=== PATIENT | male | born 1965 | race Caucasian/White ===

== ENCOUNTER 2017-09-26 18:06 | Inpatient (IN) | payer OTHER ==
[~2017-09-26] VITALS: Ht 172.7 cm; Wt 100.4 kg
[~2017-09-26 18:06] MED LIST: CORDROL20 MG PO; MEDROL DOSEPAK4 MG PO; NKHM; PEPCID20 MG PO; PREDNICOT20 MG PO; TRAMADOL HCL50 MG PO
[2017-09-26 18:09] VITALS: BP 186/101
[2017-09-26 18:47] LABS: BASO # 0.1 10*3/uL (0.0-0.1); BASO % 0.4 % (0.0-1.0); EOS # 0.1 10*3/uL (0.0-0.4); EOS % 1.2 % (1.0-4.0); HEMATOCRIT 44.9 % (42.0-52.0); LYMPH # 2.3 10*3/uL (1.3-4.4); LYMPH % 20.1 % (27.0-41.0); MEAN CELL VOLUME 90.3 fl (80.0-94.0); MEAN CORPUSCULAR HGB 30.2 pg (27.0-31.0); MEAN CORPUSCULAR HGB CONC 33.4 g/dl (33.0-37.0); MONO % 8.6 % (3.0-9.0); NEUT # 7.9 10*3/uL (2.3-7.9); NEUT % 69.4 % (47.0-73.0); PLATELET COUNT AUTOMATED 291 10*3/uL (130-400); RED BLOOD COUNT 4.97 10*6/uL (4.50-5.90); RED CELL DISTRI WIDTH 14.1 % (0-14.5); WHITE BLOOD COUNT 11.4 10*3/uL (4.8-10.8)
[2017-09-26 18:50] VITALS: BP 166/88
[2017-09-26 19:16] VITALS: BP 173/102
[2017-09-26 19:20] LABS: ALBUMIN 3.4 gm/dl (3.1-4.5); ALKALINE PHOSPHATASE 83 U/L (45-117); BUN 27 mg/dl (7-24); CHLORIDE 112 mmol/L (98-107); CREATININE 0.82 mg/dL (0.70-1.30); POTASSIUM 3.7 mmol/L (3.5-5.1); SGOT/AST 23 IU/L (3-35); SGPT/ALT 41 U/L (12-78); SODIUM 144 mmol/L (136-145); TOTAL PROTEIN 6.7 gm/dL (6.4-8.2)
[2017-09-26 20:08] VITALS: BP 164/84
[2017-09-26 20:50] VITALS: BP 160/94
[2017-09-27] VITALS: BP 158/80
[2017-09-27 04:00] VITALS: BP 174/75
[2017-09-27 05:30] LABS: HEMATOCRIT 45.1 % (42.0-52.0); HEMOGLOBIN 14.9 g/dl (14.0-18.0); MEAN CELL VOLUME 90.7 fl (80.0-94.0); MEAN PLATELET VOLUME 10.3 fl (9.6-12.3); PLATELET COUNT AUTOMATED 225 10*3/uL (130-400); RED BLOOD COUNT 4.97 10*6/uL (4.50-5.90); RED CELL DISTRI WIDTH 13.7 % (0-14.5); WHITE BLOOD COUNT 10.2 10*3/uL (4.8-10.8)
[2017-09-27 05:41] LABS: BUN 19 mg/dl (7-24); CHLORIDE 112 mmol/L (98-107); CREATININE 0.74 mg/dL (0.70-1.30); POTASSIUM 4.2 mmol/L (3.5-5.1); SODIUM 141 mmol/L (136-145)
[2017-09-27 05:44] LABS: CHOLESTEROL 155 mg/dL (<200); HDL CHOLESTEROL 67 mg/dl (40-60); LDL CHOLESTEROL 80 mg/dL (9-159); PHOSPHOROUS 2.1 mg/dL (2.5-4.9); TRIGLYCERIDES 39 mg/dl (<150); VLDL CHOLESTEROL 8 mg/dL (6-40)
[2017-09-27 05:52] LABS: THYROID STIM HORMONE (HS) 0.775 uIU/ml (0.358-4.75)
[2017-09-27 06:42] LABS: PLATELET SUFFICIENCY NORMAL (NORMAL); TOTAL CELLS COUNTED 100 #CELLS
[2017-09-27 07:23] LABS: VITAMIN D, 25-HYDROXY 23.1 ng/mL (30-100)
[2017-09-27 08:00] VITALS: BP 152/100
[2017-09-27 12:00] VITALS: BP 160/84
[2017-09-27] MEDS ORDERED: PREDNISONE10 MG PO (13:20)
[2017-09-27] MEDS ORDERED: AMLODIPINE BESYL5 MG PO (13:20)
== END 2017-09-27 14:07 | disposition home or self-care (01) | DRG 916 ==
LOC: ED 18:06 → EDHOLD 20:11 → ICCU 20:26
PROVIDERS: Physician Assistant; Student in an Organized Health Care Education/Training Program
DX: T78.3XXA Angioneurotic edema, initial encounter (principal); E87.8 Other disorders of electrolyte and fluid balance, not elsewhere classified; R03.0 Elevated blood-pressure reading, without diagnosis of hypertension; I16.0 Hypertensive urgency; I49.9 Cardiac arrhythmia, unspecified; G47.33 Obstructive sleep apnea (adult) (pediatric); Z88.0 Allergy status to penicillin; Z91.010 Allergy to peanuts; Z72.0 Tobacco use; Z71.6 Tobacco abuse counseling

== ENCOUNTER 2017-10-05 03:55 | Inpatient (IN) | payer OTHER ==
[~2017-10-05] VITALS: Ht 172.7 cm; Wt 102.1 kg
[~2017-10-05 03:55] MED LIST changes: +AMLODIPINE BESYL5 MG PO; +PREDNISONE10 MG PO
[2017-10-05 03:57] VITALS: BP 175/99
[2017-10-05 04:23] VITALS: BP 146/83
[2017-10-05] MEDS ORDERED: EPIPEN 2-P0.3 MG/0.3 IJ (04:33)
[2017-10-05 04:35] LABS: HEMATOCRIT 44.8 % (42.0-52.0); HEMOGLOBIN 14.1 g/dl (14.0-18.0); MEAN CELL VOLUME 93.1 fl (80.0-94.0); MEAN CORPUSCULAR HGB 29.3 pg (27.0-31.0); MEAN CORPUSCULAR HGB CONC 31.5 g/dl (33.0-37.0); MEAN PLATELET VOLUME 9.9 fl (9.6-12.3); PLATELET COUNT AUTOMATED 238 10*3/uL (130-400); RED BLOOD COUNT 4.81 10*6/uL (4.50-5.90); RED CELL DISTRI WIDTH 14.3 % (0-14.5); WHITE BLOOD COUNT 16.2 10*3/uL (4.8-10.8)
[2017-10-05 04:46] LABS: ACT PARTIAL THROMBO TIME 24.3 SECONDS (20.8-31.5); INTERNATIONAL NORM RATIO 0.9 (2.0-3.5)
[2017-10-05 04:52] LABS: BASOPHILS 1 % (0-1); TOTAL CELLS COUNTED 100 #CELLS
[2017-10-05 04:53] LABS: PLATELET SUFFICIENCY NORMAL (NORMAL)
[2017-10-05 04:54] LABS: ALBUMIN 3.4 gm/dl (3.1-4.5); ALKALINE PHOSPHATASE 71 U/L (45-117); BUN 26 mg/dl (7-24); CHLORIDE 109 mmol/L (98-107); CREATININE 1.35 mg/dL (0.70-1.30); POTASSIUM 4.3 mmol/L (3.5-5.1); SGOT/AST 16 IU/L (3-35); SGPT/ALT 39 U/L (12-78); SODIUM 145 mmol/L (136-145); TOTAL PROTEIN 6.6 gm/dL (6.4-8.2)
[2017-10-05 04:57] LABS: TROPONIN I < 0.015 ng/ml (<0.045)
[2017-10-05 06:56] VITALS: BP 154/64
[2017-10-05 08:00] VITALS: BP 154/95
[2017-10-05 09:39] LABS: HEMATOCRIT 46.9 % (42.0-52.0); HEMOGLOBIN 15.1 g/dl (14.0-18.0); MEAN CORPUSCULAR HGB 29.6 pg (27.0-31.0); MEAN CORPUSCULAR HGB CONC 32.2 g/dl (33.0-37.0); PLATELET COUNT AUTOMATED 205 10*3/uL (130-400); RED CELL DISTRI WIDTH 14.1 % (0-14.5); WHITE BLOOD COUNT 12.2 10*3/uL (4.8-10.8)
[2017-10-05 10:02] LABS: BUN 20 mg/dl (7-24); CHLORIDE 111 mmol/L (98-107); CREATININE 0.97 mg/dL (0.70-1.30); PHOSPHOROUS 2.1 mg/dL (2.5-4.9); POTASSIUM 4.4 mmol/L (3.5-5.1); SODIUM 144 mmol/L (136-145)
[2017-10-05 10:03] LABS: PLATELET SUFFICIENCY NORMAL (NORMAL); TOTAL CELLS COUNTED 100 #CELLS
[2017-10-05 12:00] VITALS: BP 156/91
[2017-10-05 16:00] VITALS: BP 159/87
[2017-10-05] MEDS ORDERED: NORVASC5 MG PO (16:24)
[2017-10-05] MEDS ORDERED: PREDNISONE10 MG PO (16:24)
== END 2017-10-05 16:50 | disposition home or self-care (01) | DRG 915 ==
LOC: ED 03:55 → ICCU 05:01 → EDHOLD 05:01 → ICCU 06:43
PROVIDERS: Internal Medicine; Student in an Organized Health Care Education/Training Program
DX: T78.2XXA Anaphylactic shock, unspecified, initial encounter (principal); N17.0 Acute kidney failure with tubular necrosis; E44.1 Mild protein-calorie malnutrition; E87.8 Other disorders of electrolyte and fluid balance, not elsewhere classified; E83.41 Hypermagnesemia; E83.39 Other disorders of phosphorus metabolism; R06.82 Tachypnea, not elsewhere classified; R00.0 Tachycardia, unspecified; R03.0 Elevated blood-pressure reading, without diagnosis of hypertension; Z71.6 Tobacco abuse counseling; Z72.0 Tobacco use; Z88.0 Allergy status to penicillin; Z91.010 Allergy to peanuts; Z79.899 Other long term (current) drug therapy; Z82.3 Family history of stroke; Z80.6 Family history of leukemia; Z68.28 Body mass index [BMI] 28.0-28.9, adult

== ENCOUNTER → 2017-10-13 | Outpatient (CLI) | payer OTHER ==
[~2017-10-13] MED LIST changes: +EPIPEN 2-P0.3 MG/0.3 IJ; +NORVASC5 MG PO
== END | disposition home or self-care (01) ==
LOC: RESCLI 03:52
DX: I10 Essential (primary) hypertension (principal); F10.10 Alcohol abuse, uncomplicated; K42.9 Umbilical hernia without obstruction or gangrene; Z71.41 Alcohol abuse counseling and surveillance of alcoholic; Z71.6 Tobacco abuse counseling; Z72.0 Tobacco use; Z91.010 Allergy to peanuts

== ENCOUNTER 2017-11-03 07:53 | Inpatient (IN) | payer OTHER ==
[2017-11-03] VITALS (7 sets, daily range): BP systolic 146–158; BP diastolic 64–97
[~2017-11-03] VITALS: Ht 175.3 cm; Wt 101.8 kg
--- NOTE | ~2017-11-03 | EKG ---
[place], [place] ELECTROCARDIOGRAM REPORT NAME: ROSARIO OBRIEN UNIT #: [id number] ROOM: [facility] DOCTOR: DAVID DRAFT REPORT BIRTHDATE: [birth year] [facility] Test Date: 2017-11-03 Test Time: 08:30:44 Pat Name: ROSARIO OBRIEN Department: Room: [facility] Gender: M Pbx Manager: : 1965 Requested By: MARY BUTTERFIELD Order Number: [id number] Reading MD: Maykel Lara MD Measurements Intervals [place] Rate: 82 P: 83 WI: 178 QRS: 62 QRSD: 82 T: 86 QT: 390 QTc: 456 Interpretive Statements Sinus rhythm Electronically Signed On 11-04-2017 15:36:32 PDT by Maykel Lara MD CM:EKGRPT:ELECTROCARDIOGRAM REPORT 0830 1536 MARY HERNANDEZ DRAFT REPORT MARY BUTTERFIELD M.D.
[2017-11-03 08:31] LABS: BASO % 0.5 % (0.0-1.0); EOS # 0.1 10*3/uL (0.0-0.4); EOS % 1.6 % (1.0-4.0); HEMATOCRIT 43.4 % (42.0-52.0); HEMOGLOBIN 14.2 g/dl (14.0-18.0); LYMPH # 3.1 10*3/uL (1.3-4.4); LYMPH % 48.9 % (27.0-41.0); MEAN CELL VOLUME 92.7 fl (80.0-94.0); MEAN CORPUSCULAR HGB 30.3 pg (27.0-31.0); MEAN CORPUSCULAR HGB CONC 32.7 g/dl (33.0-37.0); MEAN PLATELET VOLUME 9.8 fl (9.6-12.3); MONO # 0.7 10*3/uL (0.1-1.0); MONO % 10.3 % (3.0-9.0); NEUT # 2.4 10*3/uL (2.3-7.9); NEUT % 38.4 % (47.0-73.0); PLATELET COUNT AUTOMATED 206 10*3/uL (130-400); RED BLOOD COUNT 4.68 10*6/uL (4.50-5.90); RED CELL DISTRI WIDTH 13.7 % (0-14.5); WHITE BLOOD COUNT 6.3 10*3/uL (4.8-10.8)
[2017-11-03 08:51] LABS: ALBUMIN 3.7 gm/dl (3.1-4.5); ALKALINE PHOSPHATASE 73 U/L (45-117); BUN 19 mg/dl (7-24); CHLORIDE 111 mmol/L (98-107); CREATININE 0.86 mg/dL (0.70-1.30); POTASSIUM 3.7 mmol/L (3.5-5.1); SGOT/AST 33 IU/L (3-35); SGPT/ALT 51 U/L (12-78); SODIUM 144 mmol/L (136-145); TOTAL PROTEIN 7.1 gm/dL (6.4-8.2)
[2017-11-03 08:54] LABS: TROPONIN I < 0.015 ng/ml (<0.045)
[2017-11-04] VITALS: BP 163/95
[2017-11-04 04:00] VITALS: BP 150/89
[2017-11-04 04:25] LABS: BASO % 0.2 % (0.0-1.0); HEMATOCRIT 45.7 % (42.0-52.0); LYMPH # 1.2 10*3/uL (1.3-4.4); LYMPH % 10.3 % (27.0-41.0); MEAN CELL VOLUME 91.2 fl (80.0-94.0); MEAN CORPUSCULAR HGB 29.9 pg (27.0-31.0); MEAN CORPUSCULAR HGB CONC 32.8 g/dl (33.0-37.0); MEAN PLATELET VOLUME 10.3 fl (9.6-12.3); MONO # 0.1 10*3/uL (0.1-1.0); MONO % 1.1 % (3.0-9.0); NEUT % 87.5 % (47.0-73.0); PLATELET COUNT AUTOMATED 217 10*3/uL (130-400); RED BLOOD COUNT 5.01 10*6/uL (4.50-5.90); RED CELL DISTRI WIDTH 13.4 % (0-14.5); WHITE BLOOD COUNT 11.4 10*3/uL (4.8-10.8)
[2017-11-04 04:41] LABS: ALBUMIN 3.6 gm/dl (3.1-4.5); BUN 19 mg/dl (7-24); CHLORIDE 108 mmol/L (98-107); CREATININE 0.77 mg/dL (0.70-1.30); PHOSPHOROUS 2.6 mg/dL (2.5-4.9); POTASSIUM 3.9 mmol/L (3.5-5.1); SGOT/AST 21 IU/L (3-35); SGPT/ALT 48 U/L (12-78); SODIUM 140 mmol/L (136-145)
[2017-11-04 04:42] LABS: ALKALINE PHOSPHATASE 74 U/L (45-117); TOTAL PROTEIN 7.2 gm/dL (6.4-8.2)
[2017-11-04 06:23] LABS: ACT PARTIAL THROMBO TIME 23.2 SECONDS (20.8-31.5)
[2017-11-04 06:40] LABS: VITAMIN D, 25-HYDROXY 19.5 ng/mL (30-100)
[2017-11-04 08:00] VITALS: BP 166/90
[2017-11-04] MEDS ORDERED: PREDNISONE10 MG PO (09:44)
[2017-11-04] MEDS ORDERED: EPIPEN 2-P0.3 MG/0.3 IJ (09:44)
[2017-11-04] MEDS ORDERED: NORVASC5 MG PO (10:17)
== END 2017-11-04 11:02 | disposition home or self-care (01) | DRG 916 ==
LOC: ED 07:53 → EDHOLD 09:40 → ICCU 09:40
PROVIDERS: Emergency Medicine; Internal Medicine
DX: T78.2XXA Anaphylactic shock, unspecified, initial encounter (principal); E83.51 Hypocalcemia; E87.8 Other disorders of electrolyte and fluid balance, not elsewhere classified; I10 Essential (primary) hypertension; E66.9 Obesity, unspecified; T78.3XXS Angioneurotic edema, sequela; Z91.010 Allergy to peanuts; Z72.0 Tobacco use; Z78.9 Other specified health status; Z91.19 Patient's noncompliance with other medical treatment and regimen; Q38.2 Macroglossia; Z88.0 Allergy status to penicillin; Z79.899 Other long term (current) drug therapy; Z82.3 Family history of stroke; Z80.6 Family history of leukemia; Z68.33 Body mass index [BMI] 33.0-33.9, adult

== ENCOUNTER 2018-01-01 06:46 | Inpatient (IN) | payer OTHER ==
[~2018-01-01] VITALS: Ht 175.3 cm; Wt 105.9 kg
[2018-01-01 06:52] VITALS: BP 158/100
[2018-01-01 07:43] LABS: BASO # 0.1 10*3/uL (0.0-0.1); BASO % 0.7 % (0.0-1.0); EOS # 0.3 10*3/uL (0.0-0.4); EOS % 2.3 % (1.0-4.0); HEMATOCRIT 47.4 % (42.0-52.0); HEMOGLOBIN 15.7 g/dl (14.0-18.0); LYMPH % 45.1 % (27.0-41.0); MEAN CELL VOLUME 92.4 fl (80.0-94.0); MEAN CORPUSCULAR HGB 30.6 pg (27.0-31.0); MEAN CORPUSCULAR HGB CONC 33.1 g/dl (33.0-37.0); MEAN PLATELET VOLUME 10.2 fl (9.6-12.3); MONO # 1.1 10*3/uL (0.1-1.0); NEUT # 4.6 10*3/uL (2.3-7.9); NEUT % 41.6 % (47.0-73.0); PLATELET COUNT AUTOMATED 247 10*3/uL (130-400); RED BLOOD COUNT 5.13 10*6/uL (4.50-5.90); WHITE BLOOD COUNT 11.1 10*3/uL (4.8-10.8)
[2018-01-01 07:47] VITALS: BP 168/92
[2018-01-01 07:52] LABS: ACT PARTIAL THROMBO TIME 23.9 SECONDS (20.8-31.5)
[2018-01-01 08:00] VITALS: BP 154/67; BP 158/67
[2018-01-01 08:06] LABS: ALBUMIN 3.8 gm/dl (3.1-4.5); ALKALINE PHOSPHATASE 77 U/L (45-117); BUN 18 mg/dl (7-24); CHLORIDE 108 mmol/L (98-107); CREATININE 1.15 mg/dL (0.70-1.30); POTASSIUM 4.2 mmol/L (3.5-5.1); SGOT/AST 33 IU/L (3-35); SGPT/ALT 62 U/L (12-78); SODIUM 141 mmol/L (136-145); TOTAL PROTEIN 7.3 gm/dL (6.4-8.2)
[2018-01-01 16:00] VITALS: BP 161/82
[2018-01-01 20:00] VITALS: BP 161/82
[2018-01-02] VITALS: BP 158/70
[2018-01-02 04:00] VITALS: BP 146/76
[2018-01-02 06:05] LABS: BASO % 0.1 % (0.0-1.0); HEMATOCRIT 46.3 % (42.0-52.0); HEMOGLOBIN 14.9 g/dl (14.0-18.0); LYMPH # 1.4 10*3/uL (1.3-4.4); LYMPH % 8.7 % (27.0-41.0); MEAN CELL VOLUME 92.8 fl (80.0-94.0); MEAN CORPUSCULAR HGB 29.9 pg (27.0-31.0); MEAN CORPUSCULAR HGB CONC 32.2 g/dl (33.0-37.0); MEAN PLATELET VOLUME 10.6 fl (9.6-12.3); MONO # 0.4 10*3/uL (0.1-1.0); MONO % 2.7 % (3.0-9.0); NEUT # 14.2 10*3/uL (2.3-7.9); NEUT % 87.6 % (47.0-73.0); PLATELET COUNT AUTOMATED 234 10*3/uL (130-400); RED BLOOD COUNT 4.99 10*6/uL (4.50-5.90); RED CELL DISTRI WIDTH 12.6 % (0-14.5); WHITE BLOOD COUNT 16.3 10*3/uL (4.8-10.8)
[2018-01-02 06:14] LABS: ACT PARTIAL THROMBO TIME 23.4 SECONDS (20.8-31.5)
[2018-01-02 06:35] LABS: ALBUMIN 3.5 gm/dl (3.1-4.5); ALKALINE PHOSPHATASE 72 U/L (45-117); BUN 19 mg/dl (7-24); CHLORIDE 109 mmol/L (98-107); CREATININE 0.89 mg/dL (0.70-1.30); FREE T4 0.65 ng/dl (0.76-1.46); POTASSIUM 4.3 mmol/L (3.5-5.1); SGOT/AST 19 IU/L (3-35); SGPT/ALT 48 U/L (12-78); SODIUM 140 mmol/L (136-145); TOTAL PROTEIN 6.6 gm/dL (6.4-8.2)
[2018-01-02 06:40] LABS: THYROID STIM HORMONE (HS) 0.736 uIU/ml (0.358-4.75)
[2018-01-02 08:00] VITALS: BP 160/90
== END 2018-01-02 13:03 | disposition home or self-care (01) | DRG 916 ==
LOC: ED 06:46 → ICCU 07:37 → EDHOLD 07:37 → ICCU 07:45
PROVIDERS: Emergency Medicine; Internal Medicine
DX: T78.3XXA Angioneurotic edema, initial encounter (principal); J96.11 Chronic respiratory failure with hypoxia; R00.0 Tachycardia, unspecified; I10 Essential (primary) hypertension; E66.9 Obesity, unspecified; D72.829 Elevated white blood cell count, unspecified; E87.8 Other disorders of electrolyte and fluid balance, not elsewhere classified; E83.41 Hypermagnesemia; Z72.0 Tobacco use; Z71.6 Tobacco abuse counseling; Z91.010 Allergy to peanuts; Z99.81 Dependence on supplemental oxygen; Z88.0 Allergy status to penicillin; Z79.899 Other long term (current) drug therapy; Z82.3 Family history of stroke; Z80.6 Family history of leukemia; Z68.34 Body mass index [BMI] 34.0-34.9, adult

== ENCOUNTER 2018-02-20 22:37 | Inpatient (IN) | payer OTHER ==
[~2018-02-20] VITALS: Ht 167.6 cm; Wt 105.7 kg
--- NOTE | ~2018-02-20 | EKG ---
[place], [place] ELECTROCARDIOGRAM REPORT NAME: ROSARIO OBRIEN UNIT #: [id number] ROOM: DOCTOR: EPIPHANY DRAFT REPORT BIRTHDATE: [birth year] 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
--- NOTE | ~2018-02-20 | CON ---
[place], [place] REPORT OF CONSULTATION NAME: ROSARIO OBRIEN UNIT #: [id number] ROOM: [facility] DOCTOR: MANDIE, PHD ALBERTO BIRTHDATE: [birth year] DOS: 02/22/2018 HISTORY OF PRESENT ILLNESS: The patient is a 53-year-old male referred by the hospitalist with concerns for suicide attempt. At the present time, the patient is in the ICU at [facility]. Ethyl alcohol in the Emergency Department was 196.0 and the patient was positive for cocaine. The patient had been denying knowledge of attempting to kill himself by hanging, but admitted to Arlene Erickson that he did indeed remember, but just did not want to talk about it. The patient had been living with his son, but stated he does not know if he will be able to return upon discharge. He is and has 4 children. He is unemployed. The patient drinks at least 6 beers per day. Smokes less than a pack of cigarettes per day and was vague about his drug use. PAST MEDICAL HISTORY: Angioedema, anxiety, chronic respiratory failure with hypoxia, essential hypertension, PEANUT allergy, tachycardia. MEDICATIONS: Norvasc, Lovenox, Vistaril, Bentyl, Robaxin, Ativan. PHYSICAL EXAMINATION: The patient was lying comfortably in bed, in no apparent distress. He was awake, alert and oriented to person, place and time. Eye contact and social skills were fair. He was minimally cooperative with evaluation. Affect was blunted and mood was irritable. He denied any memories of hanging himself, but when pushed he did admit to remembering but was vague and superficial. He denied suicidal ideation, plan, and intent. He denied ever receiving mental health treatment and does not want to receive inpatient treatment at this time. Speech was within normal limits to rhythm, rate, volume and tone. Expressive and receptive language appeared within normal limits on a conversational basis. Thought process was goal directed. Thought content was negative for hallucinations and delusions. Insight and judgment appeared fair. DIAGNOSES: Alcohol use disorder; major depressive disorder, single episode, unspecified; stimulant use disorder. PLAN: Given the patient's attempted suicide and limited social support, he would likely benefit from inpatient psychiatric treatment. I spoke with [facility] staff and Dr. York will admit the patient once medically stable in detoxification. He was placed under 72-hour involuntary hold due to declining to receive treatment voluntarily. Thank you very much for this consult. [place], [place] REPORT OF CONSULTATION NAME: ROSARIO OBRIEN Luisito UNIT #: [id number] ROOM: [facility] DOCTOR: MANDIE, PHD ALBERTO BIRTHDATE: [birth year] Jossie Melvin, PhD CM:CONSTR:REPORT OF CONSULTATION 1616 02/22/18 1644 interface
[2018-02-20 22:37] VITALS: BP 153/79
[2018-02-20 23:22] LABS: BASO # 0.1 10*3/uL (0.0-0.1); BASO % 0.8 % (0.0-1.0); EOS # 0.2 10*3/uL (0.0-0.4); EOS % 1.4 % (1.0-4.0); HEMATOCRIT 45.5 % (42.0-52.0); HEMOGLOBIN 15.2 g/dl (14.0-18.0); LYMPH % 33.1 % (27.0-41.0); MEAN CELL VOLUME 91.5 fl (80.0-94.0); MEAN CORPUSCULAR HGB 30.6 pg (27.0-31.0); MEAN CORPUSCULAR HGB CONC 33.4 g/dl (33.0-37.0); MEAN PLATELET VOLUME 10.2 fl (9.6-12.3); MONO # 0.9 10*3/uL (0.1-1.0); MONO % 7.3 % (3.0-9.0); NEUT # 6.9 10*3/uL (2.3-7.9); NEUT % 57.1 % (47.0-73.0); PLATELET COUNT AUTOMATED 264 10*3/uL (130-400); RED BLOOD COUNT 4.97 10*6/uL (4.50-5.90); RED CELL DISTRI WIDTH 12.6 % (0-14.5)
[2018-02-20 23:37] LABS: ALBUMIN 3.7 gm/dl (3.1-4.5); ALKALINE PHOSPHATASE 85 U/L (45-117); BUN 18 mg/dl (7-24); CHLORIDE 109 mmol/L (98-107); CREATININE 1.19 mg/dL (0.70-1.30); SGOT/AST 69 IU/L (3-35); SGPT/ALT 67 U/L (12-78); SODIUM 142 mmol/L (136-145)
[2018-02-20 23:38] LABS: ACETAMINOPHEN (TYLENOL) < 5.0 ug/ml (10-30)
[2018-02-20 23:39] LABS: POTASSIUM 3.8 mmol/L (3.5-5.1)
[2018-02-20 23:51] LABS: BILIRUBIN NEGATIVE (NEGATIVE); BLOOD NEGATIVE (NEGATIVE); CLARITY CLEAR (CLEAR); COLOR YELLOW (YELLOW); GLUCOSE NEGATIVE (NEGATIVE); KETONE NEGATIVE (NEGATIVE); LEUKO ESTERASE NEGATIVE (NEGATIVE); NITRITE NEGATIVE (NEGATIVE); PH 5.5 (5.0-9.0); SPECIFIC GRAVITY <= 1.005 (1.005-1.030); UROBILINOGEN 0.2 E.U./dl (0.2-1.0)
[2018-02-21] VITALS (8 sets, daily range): BP systolic 120–164; BP diastolic 70–100
[2018-02-21 00:07] LABS: URINE AMPHETAMINES < 1000 (1000ng/ml); URINE BARBITURATES < 200 (200ng/ml); URINE BENZODIAZEPINES < 200 (200ng/ml); URINE CANNABINOIDS (THC) < 50 (50ng/ml); URINE COCAINE > 300 (300ng/ml); URINE METHADONE < 300 (300ng/ml); URINE OPIATES < 300 (300ng/ml)
[2018-02-21 00:08] LABS: URINE PHENCYCLIDINE < 25 (25ng/ml)
[2018-02-21 00:14] LABS: BACTERIA TRACE; EPITHELIAL CELLS 0-2; RBC 0-2 rbc/hpf (0-2)
[2018-02-21] MEDS ORDERED: NORVASC5 MG PO (04:07)
[2018-02-21] MEDS ORDERED: EPIPEN 2-P0.3 MG/0.3 IJ (04:07)
[2018-02-22] VITALS: BP 150/86
[2018-02-22 04:00] VITALS: BP 143/83
[2018-02-22 05:30] LABS: BASO # 0.1 10*3/uL (0.0-0.1); BASO % 0.7 % (0.0-1.0); EOS # 0.2 10*3/uL (0.0-0.4); EOS % 2.5 % (1.0-4.0); HEMATOCRIT 45.1 % (42.0-52.0); HEMOGLOBIN 14.7 g/dl (14.0-18.0); LYMPH # 2.7 10*3/uL (1.3-4.4); LYMPH % 33.7 % (27.0-41.0); MEAN CELL VOLUME 92.8 fl (80.0-94.0); MEAN CORPUSCULAR HGB 30.2 pg (27.0-31.0); MEAN CORPUSCULAR HGB CONC 32.6 g/dl (33.0-37.0); MEAN PLATELET VOLUME 10.3 fl (9.6-12.3); MONO # 0.8 10*3/uL (0.1-1.0); MONO % 9.3 % (3.0-9.0); NEUT # 4.3 10*3/uL (2.3-7.9); NEUT % 53.4 % (47.0-73.0); PLATELET COUNT AUTOMATED 240 10*3/uL (130-400); RED BLOOD COUNT 4.86 10*6/uL (4.50-5.90); RED CELL DISTRI WIDTH 12.7 % (0-14.5); WHITE BLOOD COUNT 8.1 10*3/uL (4.8-10.8)
[2018-02-22 05:44] LABS: BUN 13 mg/dl (7-24); CHLORIDE 110 mmol/L (98-107); CREATININE 0.89 mg/dL (0.70-1.30); POTASSIUM 4.1 mmol/L (3.5-5.1); SODIUM 142 mmol/L (136-145)
[2018-02-22 08:00] VITALS: BP 165/98
[2018-02-22 12:00] VITALS: BP 165/96
[2018-02-22 16:00] VITALS: BP 144/81
[2018-02-22 20:00] VITALS: BP 131/64
[2018-02-23] VITALS: BP 124/86
[2018-02-23 04:00] VITALS: BP 128/60
[2018-02-23 08:00] VITALS: BP 147/96
[2018-02-23 12:00] VITALS: BP 158/98
[2018-02-23 16:00] VITALS: BP 153/94
[2018-02-23 20:00] VITALS: BP 143/73
[2018-02-24] VITALS: BP 165/91
[2018-02-24 04:00] VITALS: BP 152/94
[2018-02-24 08:00] VITALS: BP 164/89
[2018-02-25] MEDS ORDERED: HYDROXYZINE PAM25 M1 PO (08:29)
[2018-02-25] MEDS ORDERED: MIRTAZAPINE15 M2 PO (08:29)
[2018-02-25] MEDS ORDERED: NORVASC5 MG PO (13:50)
[2018-02-25] MEDS ORDERED: VITAMIN D400 UNI1 PO (13:50)
== END 2018-02-24 12:20 | disposition home health service (06) | DRG 914 ==
LOC: ED 22:37 → ICCU 02-21 01:46 → EDHOLD 02-21 01:46 → ICCU 02-21 03:11
PROVIDERS: Emergency Medicine Emergency Medical Services; Student in an Organized Health Care Education/Training Program
DX: T14.91XA Suicide attempt, initial encounter (principal); J96.11 Chronic respiratory failure with hypoxia; R65.10 Systemic inflammatory response syndrome (SIRS) of non-infectious origin without acute organ dysfunction; F19.10 Other psychoactive substance abuse, uncomplicated; F32.9 Major depressive disorder, single episode, unspecified; F10.920 Alcohol use, unspecified with intoxication, uncomplicated; F14.10 Cocaine abuse, uncomplicated; I10 Essential (primary) hypertension; E66.9 Obesity, unspecified; F41.9 Anxiety disorder, unspecified; F17.210 Nicotine dependence, cigarettes, uncomplicated; D72.829 Elevated white blood cell count, unspecified; E87.8 Other disorders of electrolyte and fluid balance, not elsewhere classified; R73.9 Hyperglycemia, unspecified; R74.0 Nonspecific elevation of levels of transaminase and lactic acid dehydrogenase [LDH]; Z71.6 Tobacco abuse counseling; Z88.0 Allergy status to penicillin; Z91.010 Allergy to peanuts; Z80.6 Family history of leukemia; Z82.3 Family history of stroke; Z79.899 Other long term (current) drug therapy

== ENCOUNTER 2018-02-22 13:23 | Inpatient (IN) | payer OTHER ==
[~2018-02-22] VITALS: Ht 175.2 cm; Wt 105.7 kg
--- NOTE | ~2018-02-22 | WRIGHTHP ---
[place], [place] PATIENT HISTORY AND PHYSICAL EXAM NAME[id number] UNIT #: [id number] ROOM: 317 DOCTOR: MIKE MAY MD BIRTHDATE: [birth year] DOS: 02/25/2018 CHIEF COMPLAINT: "Doc, this was all a big mistake, it was because of all the shit I put into my body." HISTORY OF PRESENT ILLNESS: This is a 53-year-old white male who was transferred from the intensive care unit at [facility] to the [facility] for further evaluation of lethality. The patient was initially admitted to the ICU after a suicidal attempt where he attempted to hang himself. During that attempt; however, the patient was high on both alcohol and cocaine as well as other substances. During his hospitalization in ICU, the patient had continued to report that he was not suicidal and did not need help. He was transferred here for us to further evaluate and assess lethality. He reports to us that he does have a substance abuse problem, but denies any history of depression and states that he is not suicidal, currently. He is forward thinking and does have a place to stay. He denies any manic symptoms, hypomanic symptoms or psychotic symptoms. He convincingly denies suicidal thoughts, homicidal thoughts or any self-injurious thoughts. PAST MEDICAL HISTORY: Remarkable for history of angioedema, chronic respiratory failure with hypoxia, hypertension, obesity, nicotine abuse and a PEANUT ALLERGY. SOCIAL HISTORY: The patient does drink at least a 6-pack of alcohol daily. He uses cocaine frequently and smokes a half a pack of cigarettes daily and has done so since the age of 22. STRENGTHS: Good verbal skills, ambulatory. WEAKNESSES: Polysubstance abuse, chronic coping issues. MENTAL STATUS: He is alert and oriented. Mood does seem to be euthymic. He convincingly denies depressive symptomatology. He denies any neurovegetative symptoms. He also convincingly denies suicidal thoughts, homicidal thoughts or any self-injurious thoughts. He reports much forward thinking and has plans for the future and has reasons to live. He denies any type of manic symptoms or hypomanic symptoms. There is no presence of any psychotic symptoms. No auditory or visual hallucinations are present. No paranoia. Memory for short, intermediate, and exterminator termite events is fully intact. DIAGNOSIS: Polysubstance abuse and depression, not otherwise specified. DISPOSITION: Given the fact that the patient convincingly and has convincingly denied suicidal thoughts. We will go ahead and proceed with discharge at this time. Aftercare will be set up so that he continue to be monitored and we will also set up a drug and alcohol rehab program for him through [facility]. I have prescribed for him an antidepressant and a mild non-addicting antianxiety agent with the hope that these will help him maintain improved sleep and a more positive attitude. The patient has been instructed to call the unit should any problems arise between the time he is discharged and that time, he [place], [place] PATIENT HISTORY AND PHYSICAL EXAM NAME: ROSARIO OBRIEN UNIT #: [id number] ROOM: 317 DOCTOR: MIKE MAY MD BIRTHDATE: [birth year] has seen at [facility]. MIKE MAY MD CM:HISPHYS:PATIENT HISTORY AND PHYSICAL EXAMINATION 0849 MIKE MAY MD 02/25/18 0854 interface
--- NOTE | ~2018-02-22 | PR ---
[place], [place] PROGRESS NOTE [id number] UNIT #: [id number] ROOM: DOCTOR: PHD ALBERTO MELVIN BIRTHDATE: [birth year] DOS: 02/23/2018 SUBJECTIVE: I met with the patient for followup. He reports frustration with being hospitalized. Mood was irritable and affect was blunted. He denied suicidal and homicidal ideation. Discussed the patient's thoughts on his involuntary hospitalization and the consequences of his attempt to harm himself. The patient did not wish to speak further. We will continue to follow. Jossie Melvin, CM:DINORA 1414 [id number] PHD ALBERTO MELVIN 02/24/18 0415 interface
[2018-02-24 08:37] LABS: BASO # 0.1 10*3/uL (0.0-0.1); BASO % 0.7 % (0.0-1.0); EOS # 0.2 10*3/uL (0.0-0.4); EOS % 2.7 % (1.0-4.0); HEMATOCRIT 47.6 % (42.0-52.0); HEMOGLOBIN 15.5 g/dl (14.0-18.0); LYMPH # 2.2 10*3/uL (1.3-4.4); LYMPH % 32.3 % (27.0-41.0); MEAN CELL VOLUME 91.9 fl (80.0-94.0); MEAN CORPUSCULAR HGB 29.9 pg (27.0-31.0); MEAN CORPUSCULAR HGB CONC 32.6 g/dl (33.0-37.0); MEAN PLATELET VOLUME 10.3 fl (9.6-12.3); MONO # 0.6 10*3/uL (0.1-1.0); MONO % 9.2 % (3.0-9.0); NEUT # 3.8 10*3/uL (2.3-7.9); NEUT % 54.7 % (47.0-73.0); PLATELET COUNT AUTOMATED 206 10*3/uL (130-400); RED BLOOD COUNT 5.18 10*6/uL (4.50-5.90); RED CELL DISTRI WIDTH 12.6 % (0-14.5); WHITE BLOOD COUNT 6.9 10*3/uL (4.8-10.8)
[2018-02-24 08:39] LABS: ALBUMIN 3.4 gm/dl (3.1-4.5); ALKALINE PHOSPHATASE 69 U/L (45-117); BUN 16 mg/dl (7-24); CHLORIDE 108 mmol/L (98-107); CHOLESTEROL 155 mg/dL (<200); CREATININE 0.94 mg/dL (0.70-1.30); HDL CHOLESTEROL 52 mg/dl (40-60); LDL CHOLESTEROL 87 mg/dL (9-159); POTASSIUM 4.1 mmol/L (3.5-5.1); SGOT/AST 37 IU/L (3-35); SGPT/ALT 66 U/L (12-78); SODIUM 141 mmol/L (136-145); TOTAL PROTEIN 6.5 gm/dL (6.4-8.2); TRIGLYCERIDES 80 mg/dl (<150); VLDL CHOLESTEROL 16 mg/dL (6-40)
[2018-02-24 09:47] LABS: VITAMIN D, 25-HYDROXY 24.6 ng/mL (30-100)
[2018-02-24 13:35] VITALS: BP 138/93
[2018-02-24 13:37] VITALS: BP 138/93
[2018-02-24 19:39] VITALS: BP 153/73
[2018-02-25 07:12] VITALS: BP 146/76
[2018-02-25] MEDS ORDERED: HYDROXYZINE PAM25 M1 PO (08:29)
[2018-02-25] MEDS ORDERED: MIRTAZAPINE15 M2 PO (08:29)
[2018-02-25] MEDS ORDERED: NORVASC5 MG PO (13:50)
[2018-02-25] MEDS ORDERED: VITAMIN D400 UNI1 PO (13:50)
== END 2018-02-25 14:08 | disposition home or self-care (01) | DRG 885 ==
LOC: 3N 13:23
PROVIDERS: Psychiatry & Neurology Psychiatry
DX: F33.9 Major depressive disorder, recurrent, unspecified (principal); R45.851 Suicidal ideations; J96.11 Chronic respiratory failure with hypoxia; R74.0 Nonspecific elevation of levels of transaminase and lactic acid dehydrogenase [LDH]; I10 Essential (primary) hypertension; R73.03 Prediabetes; E87.8 Other disorders of electrolyte and fluid balance, not elsewhere classified; E55.9 Vitamin D deficiency, unspecified; F17.210 Nicotine dependence, cigarettes, uncomplicated; E66.9 Obesity, unspecified; F19.10 Other psychoactive substance abuse, uncomplicated; R79.89 Other specified abnormal findings of blood chemistry; F41.9 Anxiety disorder, unspecified; Z71.6 Tobacco abuse counseling; Z91.010 Allergy to peanuts; Z68.34 Body mass index [BMI] 34.0-34.9, adult; Z88.0 Allergy status to penicillin; Z82.3 Family history of stroke; Z80.6 Family history of leukemia; Z79.899 Other long term (current) drug therapy

== ENCOUNTER 2020-10-14 07:45 | Inpatient (IN) | payer OTHER ==
[2020-10-14] VITALS (13 sets, daily range): BP systolic 134–192; BP diastolic 62–99
[~2020-10-14] VITALS: Ht 175.2 cm; Wt 95.3 kg
[~2020-10-14 07:45] MED LIST changes: +HYDROXYZINE PAM25 M1 PO; +MIRTAZAPINE15 M2 PO; +VITAMIN D400 UNI1 PO
[2020-10-14 11:14] LABS: HEMATOCRIT 48.4 % (42.0-52.0); MEAN CORPUSCULAR HGB 30.7 pg (27.0-31.0); MEAN CORPUSCULAR HGB CONC 32.6 g/dl (33.0-37.0); MEAN PLATELET VOLUME 10.1 fl (9.6-12.3); PLATELET COUNT AUTOMATED 208 10*3/uL (130-400); RED BLOOD COUNT 5.15 10*6/uL (4.50-5.90); WHITE BLOOD COUNT 10.5 10*3/uL (4.8-10.8)
[2020-10-14 11:35] LABS: BASOPHILS 2 % (0-1); PLATELET SUFFICIENCY NORMAL (NORMAL); TOTAL CELLS COUNTED 100 #CELLS
[2020-10-14 11:37] LABS: ALBUMIN 3.8 gm/dl (3.1-4.5); BUN 22 mg/dl (7-24); CHLORIDE 114 mmol/L (98-107); CREATININE 0.84 mg/dL (0.70-1.30); POTASSIUM 4.1 mmol/L (3.5-5.1); SGOT/AST 60 IU/L (3-35); SGPT/ALT 76 U/L (12-78); SODIUM 138 mmol/L (136-145); TOTAL PROTEIN 7.4 gm/dL (6.4-8.2)
[2020-10-14 11:39] LABS: ALKALINE PHOSPHATASE 80 U/L (45-117)
[2020-10-15] VITALS: BP 168/88
[2020-10-15 05:34] LABS: ALBUMIN 3.6 gm/dl (3.1-4.5); BUN 19 mg/dl (7-24); CHLORIDE 111 mmol/L (98-107); POTASSIUM 4.3 mmol/L (3.5-5.1); SODIUM 139 mmol/L (136-145)
[2020-10-15 05:44] LABS: ALKALINE PHOSPHATASE 73 U/L (45-117); CHOLESTEROL 148 mg/dL (<200); CREATININE 0.71 mg/dL (0.70-1.30); LDL CHOLESTEROL 72 mg/dL (9-159); SGOT/AST 40 IU/L (3-35); SGPT/ALT 69 U/L (12-78); THYROID STIM HORMONE (HS) 0.443 uIU/ml (0.358-4.75); TRIGLYCERIDES 47 mg/dl (<150)
[2020-10-15 05:56] LABS: HEMATOCRIT 47.6 % (42.0-52.0); MEAN CORPUSCULAR HGB 30.5 pg (27.0-31.0); MEAN CORPUSCULAR HGB CONC 32.1 g/dl (33.0-37.0); MEAN PLATELET VOLUME 10.8 fl (9.6-12.3); PLATELET COUNT AUTOMATED 242 10*3/uL (130-400); RED BLOOD COUNT 5.01 10*6/uL (4.50-5.90); RED CELL DISTRI WIDTH 12.8 % (0-14.5); WHITE BLOOD COUNT 17.2 10*3/uL (4.8-10.8)
[2020-10-15 07:43] LABS: PLATELET SUFFICIENCY NORMAL (NORMAL); TOTAL CELLS COUNTED 100 #CELLS
[2020-10-15 08:00] VITALS: BP 147/76
[2020-10-15] MEDS ORDERED: EPIPEN 2-P0.3 MG/0.3 IJ (10:44)
== END 2020-10-15 11:03 | disposition home or self-care (01) | DRG 811 ==
LOC: ED 07:45 → ICCU 10:15 → EDHOLD 10:15 → ICCU 17:21
PROVIDERS: Student in an Organized Health Care Education/Training Program; ADMIT Emergency Medicine; ATTEND Emergency Medicine
DX: T78.3XXA Angioneurotic edema, initial encounter (principal); T78.2XXA Anaphylactic shock, unspecified, initial encounter; F33.9 Major depressive disorder, recurrent, unspecified; E87.8 Other disorders of electrolyte and fluid balance, not elsewhere classified; R73.9 Hyperglycemia, unspecified; R00.0 Tachycardia, unspecified; E66.9 Obesity, unspecified; F17.210 Nicotine dependence, cigarettes, uncomplicated; F41.9 Anxiety disorder, unspecified; J96.10 Chronic respiratory failure, unspecified whether with hypoxia or hypercapnia; I10 Essential (primary) hypertension; Z91.010 Allergy to peanuts; Z88.0 Allergy status to penicillin; Z82.3 Family history of stroke; Z80.6 Family history of leukemia; Z91.5 Personal history of self-harm; Z68.31 Body mass index [BMI] 31.0-31.9, adult

== ENCOUNTER 2020-11-18 15:05 | Inpatient (IN) | payer OTHER ==
[~2020-11-18] VITALS: Ht 175.2 cm; Wt 103.7 kg
[2020-11-18] VITALS (10 sets, daily range): BP systolic 112–162; BP diastolic 55–94
[2020-11-18 15:57] LABS: ALBUMIN 3.8 gm/dl (3.1-4.5); ALKALINE PHOSPHATASE 85 U/L (45-117); BUN 23 mg/dl (7-24); CHLORIDE 107 mmol/L (98-107); CPK 298 U/L (39-308); CREATININE 0.89 mg/dL (0.70-1.30); POTASSIUM 4.7 mmol/L (3.5-5.1); SGOT/AST 43 IU/L (3-35); SGPT/ALT 72 U/L (12-78); SODIUM 139 mmol/L (136-145); TOTAL PROTEIN 7.4 gm/dL (6.4-8.2)
[2020-11-18 16:01] LABS: TROPONIN I < 0.015 ng/ml (<0.045)
[2020-11-18 16:04] LABS: BASO # 0.1 10*3/uL (0.0-0.1); BASO % 0.6 % (0.0-1.0); EOS # 0.1 10*3/uL (0.0-0.4); EOS % 1.1 % (1.0-4.0); HEMATOCRIT 55.6 % (42.0-52.0); LYMPH # 3.1 10*3/uL (1.3-4.4); LYMPH % 25.3 % (27.0-41.0); MEAN CELL VOLUME 98.2 fl (80.0-94.0); MEAN CORPUSCULAR HGB 31.1 pg (27.0-31.0); MEAN CORPUSCULAR HGB CONC 31.7 g/dl (33.0-37.0); MEAN PLATELET VOLUME 10.8 fl (9.6-12.3); MONO # 1.4 10*3/uL (0.1-1.0); MONO % 11.4 % (3.0-9.0); NEUT # 7.5 10*3/uL (2.3-7.9); NEUT % 61.1 % (47.0-73.0); PLATELET COUNT AUTOMATED 215 10*3/uL (130-400); RED BLOOD COUNT 5.66 10*6/uL (4.50-5.90); RED CELL DISTRI WIDTH 12.9 % (0-14.5); WHITE BLOOD COUNT 12.3 10*3/uL (4.8-10.8)
[2020-11-19] VITALS (7 sets, daily range): BP systolic 112–150; BP diastolic 60–88
[2020-11-19 05:50] LABS: ALBUMIN 3.4 gm/dl (3.1-4.5); ALKALINE PHOSPHATASE 77 U/L (45-117); BUN 21 mg/dl (7-24); CHLORIDE 108 mmol/L (98-107); CREATININE 0.82 mg/dL (0.70-1.30); POTASSIUM 4.8 mmol/L (3.5-5.1); SGOT/AST 25 IU/L (3-35); SGPT/ALT 64 U/L (12-78); SODIUM 138 mmol/L (136-145); TOTAL PROTEIN 7.1 gm/dL (6.4-8.2)
[2020-11-19 06:19] LABS: HEMATOCRIT 52.6 % (42.0-52.0); MEAN CELL VOLUME 95.5 fl (80.0-94.0); MEAN CORPUSCULAR HGB 30.9 pg (27.0-31.0); MEAN CORPUSCULAR HGB CONC 32.3 g/dl (33.0-37.0); MEAN PLATELET VOLUME 10.9 fl (9.6-12.3); PLATELET COUNT AUTOMATED 228 10*3/uL (130-400); RED BLOOD COUNT 5.51 10*6/uL (4.50-5.90); RED CELL DISTRI WIDTH 12.8 % (0-14.5); WHITE BLOOD COUNT 15.4 10*3/uL (4.8-10.8)
[2020-11-19 07:29] LABS: PLATELET SUFFICIENCY NORMAL (NORMAL); TOTAL CELLS COUNTED 100 #CELLS
[2020-11-19] MEDS ORDERED: EPIPEN 2-P0.3 MG/0.3 IJ (10:34)
== END 2020-11-19 13:30 | disposition home or self-care (01) | DRG 811 ==
LOC: ED 15:05 → ICCU 17:29 → EDHOLD 17:29 → ICCU 11-19 07:13
PROVIDERS: Emergency Medicine; Internal Medicine; ADMIT Emergency Medicine; ATTEND Emergency Medicine
DX: T78.2XXA Anaphylactic shock, unspecified, initial encounter (principal); T78.3XXA Angioneurotic edema, initial encounter; R73.9 Hyperglycemia, unspecified; R74.01 Elevation of levels of liver transaminase levels; F17.210 Nicotine dependence, cigarettes, uncomplicated; I10 Essential (primary) hypertension; D72.829 Elevated white blood cell count, unspecified; E44.0 Moderate protein-calorie malnutrition; Y93.89 Activity, other specified; Y92.89 Other specified places as the place of occurrence of the external cause; Y99.8 Other external cause status; Z88.0 Allergy status to penicillin; Z91.010 Allergy to peanuts; Z82.3 Family history of stroke; Z79.899 Other long term (current) drug therapy; Z68.33 Body mass index [BMI] 33.0-33.9, adult; R65.10 Systemic inflammatory response syndrome (SIRS) of non-infectious origin without acute organ dysfunction